=== PATIENT | female | born 1990 | race Two or more races ===

== ENCOUNTER 2017-10-13 17:50 | Inpatient (IN) | payer MEDICAID ==
[~2017-10-13] VITALS: Ht 157.5 cm; Wt 76.6 kg
[~2017-10-13 17:50] MED LIST: CALC500C3 PO; PREN-96 PO
[2017-10-13] MEDS ORDERED: SODIUM CHLORIDE 0.9% 500 ML IVB ONE (17:57)
[2017-10-13] MEDS ORDERED: PANTOPRAZOLE 40 MG/10 ML VIAL IV STA (17:57)
[2017-10-13] MEDS ORDERED: MORPHINE SULF INJ 2 MG/ML SYRINGE 1ML IV ONE (18:00)
[2017-10-13] MEDS ORDERED: ONDANSETRON HCL 4 MG/2 ML VIAL IV ONE (18:00)
[2017-10-13 19:13] LABS: Eosinophils # (auto) 0.2 uL; Eosinophils % (auto) 1.2 % (0.0-7.0)
[2017-10-13 19:14] LABS: Basophils # (auto) 0.1 uL; Basophils % (auto) 0.4 % (0.0-2.0); Hemoglobin 12.5 g/dL (12.2-16.2); Lymphocytes # (auto) 1.5 uL; Mean Corpuscular Hemoglobin 24.5 pg (28.0-32.0); Mean Corpuscular Volume 76.7 fL (80.0-100.0); Monocytes # (auto) 0.6 uL; Monocytes % (auto) 4.7 % (0.0-12.0); Neutrophils # (auto) 11.1 uL; Neutrophils % (auto) 82.7 % (37.0-80.0); Platelet Count (auto) 350 10^3/uL (140-450); Red Blood Cells 5.09 10^6/uL (4.0-5.20); Red Cell Distribution Width 19.4 % (11.8-14.3); White Blood Cell 13.4 10^3/uL (4.4-10.8)
[2017-10-13] MEDS ORDERED: MORPHINE SULFATE 4 MG/ML SYR/VIAL IV PRN (19:30)
[2017-10-13] MEDS ORDERED: FAMOTIDINE (10MG/ML) 2ML VL IV SCH (19:30)
[2017-10-13] MEDS ORDERED: cefTRIAXone 1GM/10ml IVPUSH 10 ML IV ONE (19:30)
[2017-10-13] MEDS ORDERED: LORazepam 2MG/ML-1ML VIAL IV PRN (19:30)
[2017-10-13] MEDS ORDERED: MORPHINE SULF INJ 2 MG/ML SYRINGE 1ML IV PRN (19:30)
[2017-10-13 19:38] LABS: Albumin 3.4 g/dL (3.4-5.0); BUN/Creatinine Ratio 21.3; Bilirubin, Total 0.4 mg/dL (0.2-1.0); Calcium 8.5 mg/dL (8.5-10.1); Potassium 3.4 mmol/L (3.5-5.1); Total Protein 7.5 g/dL (6.4-8.2)
[2017-10-13] MEDS ORDERED: IOHEXOL 300 MG/ML 100ML BOTTLE IJ ONE (20:00)
[2017-10-13 20:02] LABS: INR 0.93 (0.9-1.15); Partial Thromboplastin Time 27.7 sec (23.78-33.04)
[2017-10-13] MEDS: SODIUM CHLORIDE 0.9% 1,000 ML IV SCH (20:29)
[2017-10-13] MEDS ORDERED: ONDANSETRON HCL 4 MG/2 ML VIAL IV PRN (21:00)
[2017-10-13 21:30] VITALS: BP 143/78
[2017-10-14] MEDS: metroNIDAZOLE 500MG/100ML 100 ML IV SCH ×2 (00:19→05:44)
[2017-10-14 05:00] VITALS: BP 137/84
[2017-10-14] MEDS: SODIUM CHLORIDE 0.9% 1,000 ML IV SCH ×2 (05:43→22:13)
[2017-10-14 07:19] LABS: Eosinophils # (auto) 0.3 uL; Hemoglobin 12.4 g/dL (12.2-16.2); Mean Corpuscular Hemoglobin 24.7 pg (28.0-32.0); Mean Corpuscular Hgb Conc. 31.9 g/dL (32.0-36.0); White Blood Cell 7.6 10^3/uL (4.4-10.8)
[2017-10-14 07:22] LABS: Basophils # (auto) 0 uL; Basophils % (auto) 0.5 % (0.0-2.0); Eosinophils % (auto) 4.2 % (0.0-7.0); Hematocrit 38.7 % (36.0-46.0); Lymphocytes # (auto) 2.1 uL; Lymphocytes % (auto) 28.1 % (10.0-50.0); Mean Corpuscular Volume 77.3 fL (80.0-100.0); Monocytes # (auto) 0.5 uL; Monocytes % (auto) 7.1 % (0.0-12.0); Neutrophils # (auto) 4.6 uL; Neutrophils % (auto) 60.1 % (37.0-80.0); Nucleated Red Blood Cells % 0.1 %; Platelet Count (auto) 350 10^3/uL (140-450); Red Blood Cells 5.01 10^6/uL (4.0-5.20); Red Cell Distribution Width 19.2 % (11.8-14.3)
[2017-10-14 07:33] LABS: Albumin 3.1 g/dL (3.4-5.0); Calcium 8.1 mg/dL (8.5-10.1); Potassium 3.6 mmol/L (3.5-5.1)
[2017-10-14 07:37] LABS: BUN/Creatinine Ratio 15.8; Bilirubin, Total 0.3 mg/dL (0.2-1.0)
[2017-10-14 07:39] LABS: Total Protein 6.8 g/dL (6.4-8.2)
[2017-10-14 09:00] VITALS: BP 119/71
[2017-10-14] MEDS ORDERED: cefTRIAXone 1GM/10ml IVPUSH 10 ML IV SCH (09:00)
[2017-10-14] MEDS: FAMOTIDINE 20 MG TAB PO SCH ×2 (09:57→21:49)
[2017-10-14] MEDS: ENOXAPARIN SOD 40 MG/0.4 ML SYRINGE SC SCH (09:58)
[2017-10-14] MEDS: PIPERACILLIN-TAZOB 3.375GM 100 ML IV SCH ×3 (12:23→23:47)
[2017-10-14 13:00] VITALS: BP 135/76
[2017-10-14 17:00] VITALS: BP 133/82
[2017-10-14 22:00] VITALS: BP 147/81
[2017-10-14] MEDS: ACETAMINOPHEN 325 MG TAB PO PRN (22:50)
[2017-10-15] VITALS (20 sets, daily range): BP systolic 122–205; BP diastolic 70–106
[2017-10-15 00:40] LABS: Urine Bacteria FEW /hpf (None Seen); Urine Blood Negative /uL (Negative); Urine Mucus FEW (None Seen); Urine Specific Gravity 1.032 (1.001-1.035); Urine WBC 3 /hpf (0 - 5)
[2017-10-15] MEDS: SODIUM CHLORIDE 0.9% 1,000 ML IV SCH ×3 (00:59→21:11)
[2017-10-15] MEDS: PIPERACILLIN-TAZOB 3.375GM 100 ML IV SCH ×3 (05:40→18:26)
[2017-10-15] MEDS: ACETAMINOPHEN 325 MG TAB PO PRN (05:50)
[2017-10-15 06:26] LABS: Eosinophils # (auto) 0.4 uL; Lymphocytes # (auto) 1.8 uL; Nucleated Red Blood Cells % 0.1 %; White Blood Cell 4.9 10^3/uL (4.4-10.8)
[2017-10-15 06:28] LABS: Basophils # (auto) 0.1 uL; Basophils % (auto) 1.1 % (0.0-2.0); Eosinophils % (auto) 8.7 % (0.0-7.0); Hematocrit 36.9 % (36.0-46.0); Hemoglobin 11.7 g/dL (12.2-16.2); Lymphocytes % (auto) 37.3 % (10.0-50.0); Mean Corpuscular Hemoglobin 24.6 pg (28.0-32.0); Mean Corpuscular Hgb Conc. 31.6 g/dL (32.0-36.0); Monocytes # (auto) 0.5 uL; Monocytes % (auto) 9.5 % (0.0-12.0); Neutrophils # (auto) 2.1 uL; Neutrophils % (auto) 43.4 % (37.0-80.0); Platelet Count (auto) 329 10^3/uL (140-450); Red Blood Cells 4.74 10^6/uL (4.0-5.20)
[2017-10-15 06:31] LABS: BUN/Creatinine Ratio 19.4; Calcium 7.9 mg/dL (8.5-10.1); Potassium 3.7 mmol/L (3.5-5.1)
[2017-10-15 06:39] LABS: Bilirubin, Direct 0.6 mg/dL (0-0.2); Total Protein 6.6 g/dL (6.4-8.2)
[2017-10-15] MEDS: ENOXAPARIN SOD 40 MG/0.4 ML SYRINGE SC SCH (10:00)
[2017-10-15] MEDS: FAMOTIDINE 20 MG TAB PO SCH ×2 (10:06→22:33)
[2017-10-15] MEDS ORDERED: ALBUTEROL SULF 2.5 MG/0.5ML(0.5%) NEB SOLN NEB PRN (18:00)
[2017-10-15] MEDS ORDERED: ALBUTEROL SULF 2.5 MG/0.5ML(0.5%) NEB SOLN NEB ONE (18:00)
[2017-10-15] MEDS ORDERED: hydrALAZINE HCL 20 MG/ML VL IV ONE (18:15)
[2017-10-15] MEDS ORDERED: MAGNESIUM SULFATE 1GM/100ML 100 ML IV SCH (19:00)
[2017-10-15] MEDS ORDERED: IOHEXOL 350 MG/ML 100ML IJ ONE (19:14)
[2017-10-15 19:51] LABS: Amylase 34 U/L (25-115); Lipase 132 U/L (73-393)
[2017-10-15] MEDS: MAGNESIUM SULFATE 1GM/100ML 100 ML IV SCH ×3 (20:57→23:05)
[2017-10-15] MEDS: ALBUTEROL SULF 2 MG/5ML ORAL SYRUP PO SCH (21:00)
[2017-10-15] MEDS: MORPHINE SULF INJ 2 MG/ML SYRINGE 1ML IV PRN (21:05)
[2017-10-15] MEDS: hydrALAZINE HCL 20 MG/ML VL IV PRN (22:39)
[2017-10-16] VITALS (53 sets, daily range): BP systolic 88–157; BP diastolic 46–85
[2017-10-16] MEDS: PIPERACILLIN-TAZOB 3.375GM 100 ML IV SCH ×5 (00:23→23:41)
[2017-10-16] MEDS: hydrALAZINE HCL 20 MG/ML VL IV PRN (03:11)
[2017-10-16] MEDS ORDERED: MEPERIDINE HCL (25 MG/ML) 1ML VIAL IV ONE (04:15)
[2017-10-16] MEDS ORDERED: MEPERIDINE HCL (25 MG/ML) 1ML VIAL ONE (04:17)
[2017-10-16 05:07] LABS: Basophils # (auto) 0.1 uL; Basophils % (auto) 0.5 % (0.0-2.0); Eosinophils # (auto) 0.2 uL; Hemoglobin 12.9 g/dL (12.2-16.2)
[2017-10-16 05:13] LABS: Lymphocytes # (auto) 2.1 uL; Lymphocytes % (auto) 21.2 % (10.0-50.0); Mean Corpuscular Hemoglobin 24.1 pg (28.0-32.0); Mean Corpuscular Hgb Conc. 31.5 g/dL (32.0-36.0); Mean Corpuscular Volume 76.4 fL (80.0-100.0); Monocytes # (auto) 0.5 uL; Monocytes % (auto) 5.1 % (0.0-12.0); Neutrophils # (auto) 7.1 uL; Neutrophils % (auto) 71.2 % (37.0-80.0); Nucleated Red Blood Cells % 0.1 %; Platelet Count (auto) 388 10^3/uL (140-450); Red Blood Cells 5.36 10^6/uL (4.0-5.20); Red Cell Distribution Width 19.9 % (11.8-14.3)
[2017-10-16 05:23] LABS: Albumin 3.8 g/dL (3.4-5.0); Bilirubin, Direct 0.3 mg/dL (0-0.2); Bilirubin, Total 0.9 mg/dL (0.2-1.0); Total Protein 7.5 g/dL (6.4-8.2)
[2017-10-16 05:24] LABS: BUN/Creatinine Ratio 12.5; Calcium 8.8 mg/dL (8.5-10.1); Potassium 3.5 mmol/L (3.5-5.1)
[2017-10-16] MEDS: ALBUTEROL SULF 2 MG/5ML ORAL SYRUP PO SCH ×4 (06:00→18:00)
[2017-10-16] MEDS: SODIUM CHLORIDE 0.9% 1,000 ML IV SCH ×2 (07:22→17:22)
[2017-10-16] MEDS: ENOXAPARIN SOD 40 MG/0.4 ML SYRINGE SC SCH (09:56)
[2017-10-16] MEDS: FAMOTIDINE 20 MG TAB PO SCH ×2 (09:56→21:57)
[2017-10-16] MEDS ORDERED: SUMAtriptan SUCCINATE 6 MG/0.5 ML VL SC ONE (10:45)
[2017-10-16] MEDS ORDERED: KETOROLAC TROMETH 30 MG/ML 1ML VIAL IM ONE (18:00)
[2017-10-17 04:41] VITALS: BP 120/73
[2017-10-17] MEDS: PIPERACILLIN-TAZOB 3.375GM 100 ML IV SCH ×3 (05:45→18:00)
[2017-10-17] MEDS: ALBUTEROL SULF 2 MG/5ML ORAL SYRUP PO SCH ×4 (06:00→18:00)
[2017-10-17 06:25] LABS: Basophils # (auto) 0.1 uL; Eosinophils # (auto) 0.4 uL; Lymphocytes # (auto) 1.8 uL; Mean Corpuscular Hemoglobin 24.7 pg (28.0-32.0); Monocytes # (auto) 0.5 uL; White Blood Cell 5.7 10^3/uL (4.4-10.8)
[2017-10-17 06:32] LABS: Eosinophils % (auto) 6.5 % (0.0-7.0); Hematocrit 39.2 % (36.0-46.0); Hemoglobin 12.5 g/dL (12.2-16.2); Lymphocytes % (auto) 31.7 % (10.0-50.0); Mean Corpuscular Volume 77.3 fL (80.0-100.0); Monocytes % (auto) 8.7 % (0.0-12.0); Neutrophils % (auto) 52.1 % (37.0-80.0); Nucleated Red Blood Cells % 0.2 %; Platelet Count (auto) 332 10^3/uL (140-450); Red Blood Cells 5.07 10^6/uL (4.0-5.20)
[2017-10-17 06:40] LABS: Red Cell Distribution Width 20.2 % (11.8-14.3)
[2017-10-17 06:51] LABS: Albumin 3.3 g/dL (3.4-5.0); BUN/Creatinine Ratio 12.5; Bilirubin, Total 1.5 mg/dL (0.2-1.0); Calcium 8.2 mg/dL (8.5-10.1); Potassium 3.1 mmol/L (3.5-5.1); Total Protein 7.1 g/dL (6.4-8.2)
[2017-10-17 08:52] VITALS: BP 113/62
[2017-10-17] MEDS: ENOXAPARIN SOD 40 MG/0.4 ML SYRINGE SC SCH (10:00)
[2017-10-17] MEDS ORDERED: fentaNYL CITRATE 100 MCG/2 ML VL ONE (10:08)
[2017-10-17] MEDS ORDERED: MIDAZOLAM HCL 1MG/1ML-2 ML VIAL ONE (10:08)
[2017-10-17] MEDS ORDERED: NEOSTIGMINE 1 MG/ML INJ (10mg/10ML VIAL) ONE (10:09)
[2017-10-17] MEDS ORDERED: ONDANSETRON HCL 4 MG/2 ML VIAL ONE (10:09)
[2017-10-17] MEDS ORDERED: MEPERIDINE HCL (50 MG/ML) 1 ML VIAL ONE (10:09)
[2017-10-17] MEDS ORDERED: PROPOFOL 10 MG/ML 20 ML IV ONE (10:09)
[2017-10-17] MEDS ORDERED: GLYCOPYRROLATE 0.2 MG/ML 1ML VIAL ONE (10:09)
[2017-10-17] MEDS ORDERED: ROCURONIUM 10MG/ML 10ML VIAL IV ONE (10:09)
[2017-10-17] MEDS ORDERED: KETOROLAC TROMETH 60MG/2ML VIAL IM ONE ×2 (10:09→20:15)
[2017-10-17] MEDS: POTASSIUM CHL 20MEQ/100ML 100 ML IV SCH ×2 (10:18→14:36)
[2017-10-17] MEDS: D5W/SOD CHL 0.9%/KCL 40MEQ 1,000 ML IV SCH ×2 (10:18→18:20)
[2017-10-17] MEDS ORDERED: ceFAZolin 1GM/50ML 50 ML IV ONE (10:54)
[2017-10-17] MEDS ORDERED: KETOROLAC TROMETH 30 MG/ML 1ML VIAL IV ONE (11:00)
[2017-10-17] MEDS ORDERED: METOCLOPRAMIDE HCL 5MG/ml INJ 2ml VIAL IV ONE (11:00)
[2017-10-17] MEDS: HYDROmorphone HCL 2 MG/ML VL IV PRN ×2 (12:16→12:36)
[2017-10-17 13:00] VITALS: BP 135/79
[2017-10-17] MEDS: FAMOTIDINE 20 MG TAB PO SCH ×2 (14:37→21:39)
[2017-10-17 16:34] VITALS: BP 125/60
[2017-10-17] MEDS: MORPHINE SULF INJ 2 MG/ML SYRINGE 1ML IV PRN (21:38)
[2017-10-17 22:00] VITALS: BP 116/68
[2017-10-18] MEDS: MORPHINE SULF INJ 2 MG/ML SYRINGE 1ML IV PRN ×2 (02:03→06:35)
[2017-10-18 03:09] LABS: Basophils # (auto) 0 uL; Eosinophils # (auto) 0 uL; Mean Corpuscular Hemoglobin 23.7 pg (28.0-32.0); Monocytes # (auto) 0.7 uL
[2017-10-18 03:11] LABS: Basophils % (auto) 0.1 % (0.0-2.0); Hematocrit 33.4 % (36.0-46.0); Hemoglobin 10.4 g/dL (12.2-16.2); Lymphocytes % (auto) 17.7 % (10.0-50.0); Mean Corpuscular Hgb Conc. 31.1 g/dL (32.0-36.0); Mean Corpuscular Volume 76.3 fL (80.0-100.0); Monocytes % (auto) 6.4 % (0.0-12.0); Neutrophils # (auto) 8.6 uL; Neutrophils % (auto) 75.8 % (37.0-80.0); Platelet Count (auto) 394 10^3/uL (140-450); Red Blood Cells 4.38 10^6/uL (4.0-5.20); White Blood Cell 11.3 10^3/uL (4.4-10.8)
[2017-10-18 03:12] LABS: Red Cell Distribution Width 20.2 % (11.8-14.3)
[2017-10-18 03:32] LABS: Alanine Aminotransferase 322 U/L (13-56); Albumin 2.9 g/dL (3.4-5.0); Alkaline Phosphatase 246 U/L (45-117); Anion Gap 8 (5-15); Aspartate Aminotransferase 92 U/L (15-37); Bilirubin, Direct 0.2 mg/dL (0-0.2); Bilirubin, Total 0.5 mg/dL (0.2-1.0); Blood Urea Nitrogen 9 mg/dL (7-18); Calcium 7.8 mg/dL (8.5-10.1); Carbon Dioxide 23 mmol/L (21-32); Chloride 107 mmol/L (98-107); GFR African American 154 mL/min; GFR Non-African American 127 mL/min; Glucose 119 mg/dL (74-106); Sodium 138 mmol/L (136-145); Total Protein 6.6 g/dL (6.4-8.2)
[2017-10-18 05:00] VITALS: BP 128/77
[2017-10-18] MEDS: PIPERACILLIN-TAZOB 3.375GM 100 ML IV SCH ×5 (06:00→18:00)
[2017-10-18] MEDS: ALBUTEROL SULF 2 MG/5ML ORAL SYRUP PO SCH ×4 (06:00→18:00)
[2017-10-18 07:38] VITALS: BP 113/70
[2017-10-18] MEDS: ENOXAPARIN SOD 40 MG/0.4 ML SYRINGE SC SCH (10:00)
[2017-10-18] MEDS: FAMOTIDINE 20 MG TAB PO SCH (11:15)
[2017-10-18] MEDS: HYDROcodone-ACET 5/325MG TAB PO PRN ×2 (11:15→18:52)
[2017-10-18 12:11] VITALS: BP 119/70
[2017-10-18 16:31] VITALS: BP 164/69
[2017-10-18 21:07] VITALS: BP 164/69
[2017-10-18 21:20] VITALS: BP 157/81
== END 2017-10-18 22:50 | disposition home or self-care (01) | DRG 546 ==
LOC: ER 17:50 → EDBD 17:50 → TELE 17:51 → TELE-EAST 21:55 → EAST 22:32 → ICU WEST 10-15 19:33 → TELE-EAST 10-16 12:16
PROVIDERS: ADMIT Nurse Practitioner; ATTEND Internal Medicine
PROC: 0FT44ZZ Resection of Gallbladder, Percutaneous Endoscopic Approach (ICD-10-PCS; 2017-10-17)
PROC: 0DNU4ZZ Release Omentum, Percutaneous Endoscopic Approach (ICD-10-PCS; 2017-10-17)
PROC: 0FB04ZX Excision of Liver, Percutaneous Endoscopic Approach, Diagnostic (ICD-10-PCS; principal; 2017-10-17 11:07)
DX: O85 Puerperal sepsis (principal); K80.00 Calculus of gallbladder with acute cholecystitis without obstruction; E66.9 Obesity, unspecified; E44.1 Mild protein-calorie malnutrition; O99.63 Diseases of the digestive system complicating the puerperium; I88.9 Nonspecific lymphadenitis, unspecified; O25.3 Malnutrition in the puerperium; O13.5 Gestational [pregnancy-induced] hypertension without significant proteinuria, complicating the puerperium; O90.89 Other complications of the puerperium, not elsewhere classified; O99.215 Obesity complicating the puerperium; E87.6 Hypokalemia; Z68.30 Body mass index [BMI] 30.0-30.9, adult; Z82.49 Family history of ischemic heart disease and other diseases of the circulatory system; Z83.3 Family history of diabetes mellitus
CPT/HCPCS: 36415; 70450; 71275; 74177; 74181; 76705; 80048; 80053; 80076; 81001; 81025; 82150; 82248; 83690; 83735; 84443; 84484; 85025; 85610; 85652; 85730; 86141; 86850; 86900; 86901; 87081; 93306; 94640; 94761; 96361; 96374; 96375; A6257; C9113; J0690; J0696; J1885; J2250; J2405; J2543; J2704; J3480; J3490

== ENCOUNTER 2018-07-03 21:36 | Emergency (ER) | payer MEDICAID ==
[~2018-07-03] VITALS: Ht 170.2 cm; Wt 81.6 kg
[2018-07-04] MEDS ORDERED: HYDROcodone-ACET 5/325MG TAB PO ONE (00:30)
[2018-07-04 02:30] VITALS: BP 133/67
== END 2018-07-04 02:41 | disposition home or self-care (01) ==
LOC: EDBD 21:36 → ER 21:41
DX: S80.12XA Contusion of left lower leg, initial encounter (principal); M54.2 Cervicalgia; M54.6 Pain in thoracic spine; V43.52XA Car driver injured in collision with other type car in traffic accident, initial encounter; Y93.I9 Activity, other involving external motion; Y92.488 Other paved roadways as the place of occurrence of the external cause; Y99.8 Other external cause status
CPT/HCPCS: 70450; 72125; 73590

== ENCOUNTER 2018-10-05 12:03 | Emergency (ER) | payer MEDICAID ==
[~2018-10-05] VITALS: Ht 157.5 cm; Wt 83.9 kg
[2018-10-05 13:17] VITALS: BP 153/99
== END 2018-10-05 15:01 | disposition home or self-care (01) ==
LOC: ER 12:09
DX: G44.209 Tension-type headache, unspecified, not intractable (principal); F41.9 Anxiety disorder, unspecified
CPT/HCPCS: 70450; 93005

== ENCOUNTER 2022-11-19 09:15 | Emergency (ER) | payer MEDICAID ==
[~2022-11-19] VITALS: Ht 160 cm; Wt 84.0 kg
[2022-11-19 09:43] VITALS: BP 148/94; RESP 20; TEMP 98.1; O2SAT 100
[2022-11-19] MEDS ORDERED: SODIUM CHLORIDE 0.9% 1,000 ML IVB ONE (09:45)
[2022-11-19 09:59] LABS: Basophils # (auto) 0.1 10 ^3/uL (0-0.2); Basophils % (auto) 0.7 % (0.0-2.0); Eosinophils # (auto) 0.4 10 ^3/uL (0-0.8); Eosinophils % (auto) 4.5 % (0.0-7.0); Hematocrit 38.2 % (36.0-46.0); Hemoglobin 12.6 g/dL (12.2-16.2); Lymphocytes # (auto) 2.5 10 ^3/uL (0.4-5.4); Lymphocytes % (auto) 30.6 % (10.0-50.0); Mean Corpuscular Hemoglobin 29.6 pg (28.0-32.0); Mean Corpuscular Hgb Conc. 32.9 g/dL (32.0-36.0); Mean Corpuscular Volume 89.8 fL (80.0-100.0); Monocytes # (auto) 0.6 10 ^3/uL (0-1.3); Monocytes % (auto) 7.5 % (0.0-12.0); Neutrophils # (auto) 4.6 10 ^3/uL (1.6-8.6); Neutrophils % (auto) 56.7 % (37.0-80.0); Red Blood Cells 4.26 10^6/uL (4.0-5.20); Red Cell Distribution Width 14.2 % (11.8-14.3); White Blood Cell 8.2 10^3/uL (4.4-10.8)
[2022-11-19 10:24] LABS: Alanine Aminotransferase 18 U/L (7-40); Albumin 4.3 g/dL (3.2-4.8); Alkaline Phosphatase 76 U/L (46-116); Anion Gap 8.7 (5-15); Aspartate Aminotransferase 12 U/L (13-40); Bilirubin, Total 0.4 mg/dL (0.2-1.0); Blood Urea Nitrogen 20 mg/dL (9-23); Calcium 9.2 mg/dL (8.5-10.1); Carbon Dioxide 23.3 mmol/L (20-30); Chloride 107 mmol/L (98-107); Glucose 120 mg/dL (74-106); Magnesium 1.8 mg/dL (1.6-2.6); Potassium 4.1 mmol/L (3.5-5.1); Sodium 139 mmol/L (136-145)
[2022-11-19 10:25] LABS: Total Protein 7.2 g/dL (5.7-8.2)
[2022-11-19 12:02] LABS: Urine Bacteria FEW /hpf (None Seen); Urine Blood Negative /uL (Negative); Urine Clarity Clear (Clear); Urine Color Yellow (Yellow); Urine Mucus FEW (None Seen); Urine Protein, UAD TRACE (Negative); Urine Urobilinogen Normal (Negative); Urine WBC 4 /hpf (0 - 5)
[2022-11-19 12:16] VITALS: PULSE 60
== END 2022-11-19 12:29 | disposition home or self-care (01) ==
LOC: EDBD 09:15 → ER 09:15
DX: R07.89 Other chest pain (principal); R10.2 Pelvic and perineal pain; R55 Syncope and collapse; F41.9 Anxiety disorder, unspecified; I10 Essential (primary) hypertension; Z79.899 Other long term (current) drug therapy; Z90.49 Acquired absence of other specified parts of digestive tract; Z98.890 Other specified postprocedural states
CPT/HCPCS: 36415; 71045; 80053; 81001; 83735; 84484; 84702; 85025; 85379; 93005; 96360; 99285; J7030